=== PATIENT | female | born 1955 | race Two or more races ===

== ENCOUNTER 2016-09-26 23:18 | Emergency (ER) | payer MEDICAID ==
[~2016-09-26] VITALS: Ht 154.9 cm; Wt 86.6 kg
[~2016-09-26 23:18] MED LIST: CARV6.2551 PO; LEVEMIR SC; LEVO112T4 PO; OMEP20CA5 PO; ROSU10TA16 PO
[2016-09-27 00:11] LABS: Basophils # (auto) 0.1 uL; Basophils % (auto) 1.4 % (0.0-2.0); Eosinophils # (auto) 0.2 uL; Eosinophils % (auto) 2.3 % (0.0-7.0); Hemoglobin 14.4 g/dL (12.2-16.2); Lymphocytes # (auto) 3.5 uL; Lymphocytes % (auto) 34.4 % (10.0-50.0); Mean Corpuscular Hemoglobin 30.5 pg (28.0-32.0); Mean Corpuscular Hgb Conc. 32.6 g/dL (32.0-36.0); Mean Corpuscular Volume 93.5 fL (80.0-100.0); Mean Platelet Volume 8.1 fL (7.4-10.4); Monocytes # (auto) 0.9 uL; Monocytes % (auto) 8.4 % (0.0-12.0); Neutrophils # (auto) 5.6 uL; Neutrophils % (auto) 53.5 % (37.0-80.0); Platelet Count (auto) 298 10^3/uL (140-450); Red Cell Distribution Width 13.7 % (11.6-16.0); White Blood Cell 10.3 10^3/uL (4.4-10.8)
[2016-09-27 00:17] LABS: INR 0.94 (0.9-1.15); Partial Thromboplastin Time 25.9 sec (22.64-33.71); Prothrombin Time 10.2 sec (9.37-12.3)
[2016-09-27 00:22] LABS: B-Type Natriuretic Peptide 47.84 pg/mL (0-100)
[2016-09-27 00:25] LABS: Albumin 3.3 g/dL (3.4-5.0); Alkaline Phosphatase 153 U/L (45-117); Anion Gap 10 (5-15); Aspartate Aminotransferase 20 U/L (15-37); BUN/Creatinine Ratio 19.8; Bilirubin, Total 0.2 mg/dL (0.2-1.0); Blood Urea Nitrogen 18 mg/dL (7-18); Calcium 9.4 mg/dL (8.5-10.1); Carbon Dioxide 24 mmol/L (21-32); Chloride 107 mmol/L (98-107); GFR African American 80 mL/min; GFR Non-African American 66 mL/min; Glucose 215 mg/dL (74-106); Magnesium 2.1 mg/dL (1.6-2.6); Potassium 4.2 mmol/L (3.5-5.1); Sodium 141 mmol/L (136-145); Total Protein 7.4 g/dL (6.4-8.2)
[2016-09-27 00:28] LABS: Temperature: 23.5 C (20.0-25.0)
[2016-09-27] MEDS ORDERED: NALBUPHINE HCL 10 MG/1ml INJECTION IV ONE (01:30)
[2016-09-27] MEDS ORDERED: ONDANSETRON HCL 4 MG/2 ML VIAL IV ONE (01:30)
[2016-09-27] MEDS ORDERED: LACTULOSE 20Gm/30ML SOLN PO ONE (04:15)
[2016-09-27 04:17] VITALS: BP 142/67
== END 2016-09-27 04:30 | disposition home or self-care (01) ==
LOC: EDBD 23:18 → ER 23:19
DX: K57.90 Diverticulosis of intestine, part unspecified, without perforation or abscess without bleeding (principal); K59.00 Constipation, unspecified; R07.9 Chest pain, unspecified; K21.9 Gastro-esophageal reflux disease without esophagitis; E11.9 Type 2 diabetes mellitus without complications; I25.10 Atherosclerotic heart disease of native coronary artery without angina pectoris; Z90.49 Acquired absence of other specified parts of digestive tract; E78.5 Hyperlipidemia, unspecified; I10 Essential (primary) hypertension; I25.2 Old myocardial infarction; E07.9 Disorder of thyroid, unspecified; Z88.6 Allergy status to analgesic agent; Z88.0 Allergy status to penicillin; Z88.8 Allergy status to other drugs, medicaments and biological substances; Z91.040 Latex allergy status; Z79.4 Long term (current) use of insulin
CPT/HCPCS: 36415; 71010; 74176; 80053; 83690; 83735; 83880; 84484; 85025; 85610; 85730; 93005; 96374; 96375; 99285; J2300; J2405

== ENCOUNTER 2016-10-04 02:35 | Inpatient (IN) | payer MEDICAID ==
[~2016-10-04] VITALS: Ht 154.9 cm; Wt 82.3 kg
[2016-10-04 06:13] LABS: INR 0.96 (0.9-1.15); Partial Thromboplastin Time 25.9 sec (22.64-33.71); Prothrombin Time 10.4 sec (9.37-12.3)
[2016-10-04 06:17] LABS: Basophils # (auto) 0.1 uL; Basophils % (auto) 0.8 % (0.0-2.0); Eosinophils # (auto) 0.2 uL; Eosinophils % (auto) 1.7 % (0.0-7.0); Hemoglobin 14.6 g/dL (12.2-16.2); Lymphocytes # (auto) 3.3 uL; Lymphocytes % (auto) 28.4 % (10.0-50.0); Mean Corpuscular Hemoglobin 31.6 pg (28.0-32.0); Mean Corpuscular Hgb Conc. 33.9 g/dL (32.0-36.0); Mean Corpuscular Volume 93.1 fL (80.0-100.0); Monocytes # (auto) 0.9 uL; Monocytes % (auto) 7.8 % (0.0-12.0); Neutrophils % (auto) 61.3 % (37.0-80.0); White Blood Cell 11.5 10^3/uL (4.4-10.8)
[2016-10-04 06:18] LABS: Mean Platelet Volume 8.2 fL (7.4-10.4); Platelet Count (auto) 284 10^3/uL (140-450); Red Cell Distribution Width 14.8 % (11.6-16.0)
[2016-10-04 06:19] LABS: Albumin 3.3 g/dL (3.4-5.0); Alkaline Phosphatase 149 U/L (45-117); Amylase 77 U/L (25-115); Anion Gap 9 (5-15); Aspartate Aminotransferase 22 U/L (15-37); BUN/Creatinine Ratio 25.2; Bilirubin, Total 0.2 mg/dL (0.2-1.0); Blood Urea Nitrogen 27 mg/dL (7-18); Calcium 9.2 mg/dL (8.5-10.1); Carbon Dioxide 22 mmol/L (21-32); Chloride 108 mmol/L (98-107); GFR African American 67 mL/min; GFR Non-African American 55 mL/min; Glucose 269 mg/dL (74-106); Magnesium 1.9 mg/dL (1.6-2.6); Potassium 4.5 mmol/L (3.5-5.1); Sodium 139 mmol/L (136-145); Total Protein 7.4 g/dL (6.4-8.2)
[2016-10-04 06:22] LABS: Urine Bilirubin Negative (Negative); Urine Color Yellow (Yellow); Urine Glucose Normal (Normal); Urine RBC None Seen /hpf (0 - 4); Urine Urobilinogen Normal (Negative)
[2016-10-04 06:23] LABS: Urine Blood Negative /uL (Negative); Urine Ketone Negative (Negative); Urine Nitrite Negative (Negative); Urine Squamous Epithelial Cell FEW /hpf (<5)
[2016-10-04] MEDS ORDERED: SODIUM CHLORIDE 0.9% 1,000 ML IV ONE (07:00)
[2016-10-04] MEDS ORDERED: NITROFURANTOIN (MONO) 100 mg CAP PO ONE (09:00)
[2016-10-04] MEDS ORDERED: PANTOPRAZOLE SODIUM 40 MG/10 ML VIAL IV SCH (13:15)
[2016-10-04] MEDS: metroNIDAZOLE 500MG/100ML 100 ML IV SCH ×2 (13:26→18:40)
[2016-10-04] MEDS ORDERED: LEVOFLOXACIN 500MG 100 ML IV SCH (13:30)
[2016-10-04] MEDS ORDERED: cefTRIAXone 1GM/50ML D5W 50 ML IV ONE (14:15)
[2016-10-04] MEDS ORDERED: PANTOPRAZOLE SODIUM 40 MG/10 ML VIAL IV ONE (14:15)
[2016-10-04] MEDS ORDERED: DEXTROSE (50%) 50ML SYRG IV PRN (14:15)
[2016-10-04] MEDS: SODIUM CHLORIDE 0.9% 1,000 ML IV SCH (14:43)
[2016-10-04] MEDS ORDERED: CARVEDILOL 3.125 MG TAB PO ONE (14:45)
[2016-10-04] MEDS ORDERED: LISINOPRIL 10 MG TAB PO ONE (14:45)
[2016-10-04] MEDS: traMADol HCL 50 MG TAB PO PRN (16:34)
[2016-10-04] MEDS: ACCU-CHEK COMFORT CURVE STRIP VI SCH ×2 (18:41→21:24)
[2016-10-04] MEDS: InsuLIN REG 1unit/0.01ml Soln (100units/ml) SC SCH ×2 (18:41→21:48)
[2016-10-04 21:05] VITALS: BP 132/60
[2016-10-04] MEDS: CARVEDILOL 3.125 MG TAB PO SCH (21:47)
[2016-10-04] MEDS: ONDANSETRON HCL 4 MG/2 ML VIAL IV PRN (21:48)
[2016-10-04] MEDS: MORPHINE SULF INJ 2 MG/ML SYRINGE 1ML IV PRN (21:48)
[2016-10-04] MEDS ORDERED: ATORVASTATIN 20 MG TAB PO SCH (22:00)
[2016-10-05] MEDS: metroNIDAZOLE 500MG/100ML 100 ML IV SCH ×2 (00:03→06:21)
[2016-10-05] MEDS: SODIUM CHLORIDE 0.9% 1,000 ML IV SCH ×2 (03:42→16:55)
[2016-10-05 05:41] VITALS: BP 105/55
[2016-10-05 05:56] LABS: Basophils # (auto) 0 uL; Basophils % (auto) 0.5 % (0.0-2.0); Eosinophils # (auto) 0.2 uL; Eosinophils % (auto) 2.2 % (0.0-7.0); Hematocrit 40.4 % (36.0-46.0); Hemoglobin 13.7 g/dL (12.2-16.2); Lymphocytes # (auto) 2.5 uL; Lymphocytes % (auto) 34.8 % (10.0-50.0); Mean Corpuscular Hemoglobin 31.7 pg (28.0-32.0); Mean Corpuscular Hgb Conc. 33.9 g/dL (32.0-36.0); Mean Corpuscular Volume 93.5 fL (80.0-100.0); Mean Platelet Volume 7.9 fL (7.4-10.4); Monocytes # (auto) 0.5 uL; Monocytes % (auto) 7.6 % (0.0-12.0); Neutrophils # (auto) 3.9 uL; Neutrophils % (auto) 54.9 % (37.0-80.0); Platelet Count (auto) 275 10^3/uL (140-450); Red Cell Distribution Width 15.3 % (11.6-16.0); White Blood Cell 7.1 10^3/uL (4.4-10.8)
[2016-10-05] MEDS: ACCU-CHEK COMFORT CURVE STRIP VI SCH ×4 (06:21→21:32)
[2016-10-05] MEDS: LEVOTHYROXINE SODIUM 112 MCG TAB PO SCH (06:21)
[2016-10-05] MEDS: InsuLIN REG 1unit/0.01ml Soln (100units/ml) SC SCH ×4 (06:22→21:32)
[2016-10-05 06:31] LABS: Potassium 4.4 mmol/L (3.5-5.1)
[2016-10-05 06:39] LABS: Calcium 9.1 mg/dL (8.5-10.1)
[2016-10-05] MEDS: ONDANSETRON HCL 4 MG/2 ML VIAL IV PRN ×3 (06:41→21:33)
[2016-10-05 09:00] VITALS: BP 122/47
[2016-10-05] MEDS: cefTRIAXone 1GM/50ML D5W 50 ML IV SCH (09:23)
[2016-10-05] MEDS: CARVEDILOL 3.125 MG TAB PO SCH ×2 (09:59→21:30)
[2016-10-05] MEDS ORDERED: PANTOPRAZOLE SODIUM 40 MG/10 ML VIAL IV SCH (10:00)
[2016-10-05] MEDS: LISINOPRIL 10 MG TAB PO SCH (10:00)
[2016-10-05] MEDS ORDERED: LISINOPRIL 10 MG TAB PO SCH (10:00)
[2016-10-05 13:00] VITALS: BP 129/64
[2016-10-05] MEDS: MORPHINE SULF INJ 2 MG/ML SYRINGE 1ML IV PRN ×4 (15:21→21:40)
[2016-10-05 17:00] VITALS: BP 115/58
[2016-10-05 20:00] VITALS: BP 150/64
[2016-10-05] MEDS: PANTOPRAZOLE 40 MG TAB PO SCH (21:32)
[2016-10-05 22:52] VITALS: BP 150/64
[2016-10-05] MEDS: traMADol HCL 50 MG TAB PO PRN (23:48)
[2016-10-06] MEDS ORDERED: TEMAZEPAM 15 MG CAP PO ONE (01:00)
[2016-10-06] MEDS: MORPHINE SULF INJ 2 MG/ML SYRINGE 1ML IV PRN ×2 (01:40→12:03)
[2016-10-06 05:44] VITALS: BP 105/61
[2016-10-06] MEDS: LEVOTHYROXINE SODIUM 112 MCG TAB PO SCH (06:17)
[2016-10-06] MEDS: SODIUM CHLORIDE 0.9% 1,000 ML IV SCH (06:17)
[2016-10-06] MEDS: ACCU-CHEK COMFORT CURVE STRIP VI SCH ×2 (06:19→11:30)
[2016-10-06] MEDS: InsuLIN REG 1unit/0.01ml Soln (100units/ml) SC SCH ×2 (06:19→11:30)
[2016-10-06] MEDS: cefTRIAXone 1GM/50ML D5W 50 ML IV SCH (08:46)
[2016-10-06] MEDS ORDERED: SODIUM CHLORIDE LOCK 10 ML ONE (08:57)
[2016-10-06] MEDS ORDERED: LIDOCAINE VISCOUS 2% 15ML UD ONE (08:57)
[2016-10-06] MEDS ORDERED: diphenhdrAMINE HCL 50 MG/1 ML VL ONE (08:58)
[2016-10-06] MEDS ORDERED: fentaNYL CITRATE 100 MCG/2 ML VL ONE (08:58)
[2016-10-06] MEDS ORDERED: MIDAZOLAM HCL 5 MG/ML-1ML VIAL ONE (08:58)
[2016-10-06 09:00] VITALS: BP 99/52
[2016-10-06] MEDS: LISINOPRIL 10 MG TAB PO SCH (10:00)
[2016-10-06] MEDS: PANTOPRAZOLE 40 MG TAB PO SCH (10:00)
[2016-10-06] MEDS: CARVEDILOL 3.125 MG TAB PO SCH (10:00)
[2016-10-06 12:37] VITALS: BP 138/65
[2016-10-06 13:00] VITALS: BP 138/65
== END 2016-10-06 14:05 | disposition home or self-care (01) | DRG 241 ==
LOC: ER 02:35 → OVERFLOW 08:08 → OBSVTOIN 08:08 → OVERFLOW 14:31 → EAST 15:39 → CENTRAL 18:40
PROVIDERS: ADMIT Internal Medicine; ATTEND Internal Medicine
PROC: 0DB68ZX Excision of Stomach, Via Natural or Artificial Opening Endoscopic, Diagnostic (ICD-10-PCS; principal; 2016-10-06 10:57)
DX: K29.70 Gastritis, unspecified, without bleeding (principal); N39.0 Urinary tract infection, site not specified; I10 Essential (primary) hypertension; K57.32 Diverticulitis of large intestine without perforation or abscess without bleeding; E78.5 Hyperlipidemia, unspecified; I25.10 Atherosclerotic heart disease of native coronary artery without angina pectoris; E66.9 Obesity, unspecified; E11.9 Type 2 diabetes mellitus without complications; E03.9 Hypothyroidism, unspecified; K21.9 Gastro-esophageal reflux disease without esophagitis; Z68.34 Body mass index [BMI] 34.0-34.9, adult; Z86.73 Personal history of transient ischemic attack (TIA), and cerebral infarction without residual deficits; Z98.61 Coronary angioplasty status; Z90.49 Acquired absence of other specified parts of digestive tract; I25.2 Old myocardial infarction; Z91.041 Radiographic dye allergy status; Z91.040 Latex allergy status; Z88.5 Allergy status to narcotic agent; Z88.0 Allergy status to penicillin; Z91.018 Allergy to other foods; Z88.8 Allergy status to other drugs, medicaments and biological substances
CPT/HCPCS: 36415; 43239; 71010; 80048; 80053; 81001; 82150; 82962; 83036; 83605; 83690; 83735; 84443; 84484; 85025; 85610; 85730; 86677; 87040; 87086; 93005; 96361; 96365; 96375; C9113; J0696; J1815; J1956; J2250; J2405; J3490